=== PATIENT | female | born 1995 | race Caucasian/White ===

== ENCOUNTER 2019-03-24 12:22 | Emergency (ER) | payer MEDICARE, OTHER ==
[~2019-03-24] VITALS: Ht 165.1 cm; Wt 100.0 kg
[~2019-03-24 12:22] MED LIST: LEVE250T PO
[2019-03-24] MEDS ORDERED: ACET-2247 PO (13:15)
[2019-03-24] MEDS ORDERED: CETI10TA59 PO (13:15)
[2019-03-24] MEDS ORDERED: IBUP-2071 PO (13:15)
[2019-03-24] MEDS ORDERED: DOCU-275 PO (13:15)
[2019-03-24] MEDS ORDERED: ESLI800T PO (13:15)
[2019-03-24] MEDS ORDERED: LEVE500T53 PO (13:43)
[2019-03-24] MEDS ORDERED: ACETAMINOPHEN 500 MG TABLET PO ONE (13:45)
[2019-03-24 15:58] VITALS: BP 128/78
== END 2019-03-24 16:36 | disposition home or self-care (01) ==
LOC: EMS 12:24
DX: S70.01XA Contusion of right hip, initial encounter (principal); S09.90XA Unspecified injury of head, initial encounter; R03.0 Elevated blood-pressure reading, without diagnosis of hypertension; W07.XXXA Fall from chair, initial encounter; Y93.89 Activity, other specified; Y92.89 Other specified places as the place of occurrence of the external cause; Y99.8 Other external cause status
CPT/HCPCS: 70450; 73552

== ENCOUNTER 2023-06-11 13:34 | Emergency (ER) | payer MEDICARE, OTHER ==
[~2023-06-11] VITALS: Ht 160 cm; Wt 77.3 kg
[~2023-06-11 13:34] MED LIST changes: +ACET-2247 PO; +CETI-450 PO; +DOCU-385 PO; +ESLI800T PO; +IBUP-1493 PO; -LEVE250T PO; +LEVE500T20 PO
[2023-06-11 14:18] VITALS: TEMP 97.6
[2023-06-11 14:39] LABS: BASOPHILS % (AUTO) 1.4 % (0.0-2.0); EOSINOPHILS % (AUTO) 5.7 % (1.0-6.0); HEMATOCRIT 39.6 % (36-46); HEMOGLOBIN 12.9 g/dL (12.0-16.0); LYMPHOCYTES # (AUTO) 2.4 K/uL (1.0-4.8); MEAN CORPUSCULAR HEMOGLOBIN 26.9 pg (26.0-34.0); MEAN CORPUSCULAR HGB CONC 32.7 G/dL (31.0-37.0); MEAN CORPUSCULAR VOLUME 82 fL (80-100); MONOCYTES # (AUTO) 0.6 K/uL (0.1-1.0); MONOCYTES % (AUTO) 6.7 % (2.0-9.0); NEUTROPHILS # (AUTO) 5.1 K/uL (1.8-7.7); NEUTROPHILS % (AUTO) 58.2 % (40.0-70.0); PLATELET COUNT (AUTO) 362 K/uL (150-450); RED BLOOD CELL COUNT(AUTO) 4.81 MIL/uL (4.00-5.20); RED CELL DISTRIBUTION WIDTH 13.5 % (11.5-14.5); WHITE BLOOD COUNT (AUTO) 8.7 K/uL (4.5-11.0)
[2023-06-11 14:55] LABS: ANION GAP 11 mmol/L (8-16); CALCIUM, TOTAL 10.1 mg/dL (8.8-10.5); CARBON DIOXIDE 27 mmol/L (22-29); CHLORIDE 103 mmol/L (98-107); CREATININE 0.75 mg/dL (0.60-1.30); GLOMERULAR FILTR. RATE CALC > 60 mL/min (>60); GLUCOSE,RANDOM 98 mg/dL (70-110); POTASSIUM 3.7 mmol/L (3.5-5.1); SODIUM SERUM 141 mmol/L (136-145); UREA NITROGEN, BLOOD 10 mg/dL (7-18)
[2023-06-11 15:01] LABS: ALANINE AMINOTRANSFERASE 98 U/L (12-78); ALBUMIN 4.1 g/dL (3.4-5.0); ALKALINE PHOSPHATASE 86 U/L (46-116); ASPARTATE AMINOTRANSFERASE 63 U/L (15-37); BILIRUBIN,TOTAL 0.2 mg/dL (0.1-1.0); TOTAL PROTEIN, SERUM 8.5 g/dL (6.4-8.2)
[2023-06-11 16:00] VITALS: BP 119/64; PULSE 69; RESP 17
== END 2023-06-11 16:15 | disposition home or self-care (01) ==
LOC: EMS 13:35
DX: S30.0XXA Contusion of lower back and pelvis, initial encounter (principal); G80.9 Cerebral palsy, unspecified; W18.39XA Other fall on same level, initial encounter; Y93.89 Activity, other specified; Y92.89 Other specified places as the place of occurrence of the external cause; Y99.8 Other external cause status; Z99.3 Dependence on wheelchair
CPT/HCPCS: 80053; 85025; 99283

== ENCOUNTER 2023-10-23 09:56 | Emergency (ER) | payer MEDICARE, OTHER ==
[~2023-10-23] VITALS: Ht 154.9 cm; Wt 119.0 kg
[2023-10-23 10:22] VITALS: BP 136/74; PULSE 71; RESP 16; TEMP 98.1
== END 2023-10-23 11:37 | disposition home or self-care (01) ==
LOC: EMS 10:21
DX: S50.11XA Contusion of right forearm, initial encounter (principal); W07.XXXA Fall from chair, initial encounter; Y93.89 Activity, other specified; Y92.89 Other specified places as the place of occurrence of the external cause; Y99.8 Other external cause status
CPT/HCPCS: 99284; 73070-TC; 73090-TC; Z7502

== ENCOUNTER 2024-03-17 16:29 | Emergency (ER) | payer MEDICARE, OTHER ==
[~2024-03-17] VITALS: Ht 160 cm; Wt 123.2 kg
[~2024-03-17 16:29] MED LIST changes: +LEVE-71 PO; -LEVE500T20 PO
[2024-03-17 17:10] VITALS: TEMP 99.1
[2024-03-17 17:15] VITALS: BP 145/100; PULSE 91; RESP 20; O2SAT 99
[2024-03-17] MEDS ORDERED: SERT-440 PO (18:27)
[2024-03-17] MEDS ORDERED: LEVE10006 PO (18:27)
[2024-03-17] MEDS ORDERED: PROP20TA96 PO (18:27)
[2024-03-17] MEDS ORDERED: BACL20TA PO (18:27)
[2024-03-17] MEDS ORDERED: ICOS1CAP PO (18:27)
[2024-03-17] MEDS: BACITRACIN 0.9 GM PACKET OINTMENT TP ONE (18:28)
[2024-03-17] MEDS: ACETAMINOPHEN 500 MG TABLET PO ONE (18:28)
== END 2024-03-17 19:02 | disposition home or self-care (01) ==
LOC: EMS 16:29
DX: S50.01XA Contusion of right elbow, initial encounter (principal); G80.9 Cerebral palsy, unspecified; Z99.3 Dependence on wheelchair; W05.0XXA Fall from non-moving wheelchair, initial encounter; Y93.89 Activity, other specified; Y92.89 Other specified places as the place of occurrence of the external cause; Y99.8 Other external cause status
CPT/HCPCS: 99283